=== PATIENT | male | born 1960 | race Two or more races ===

== ENCOUNTER 2018-07-31 09:44 | Outpatient (REF) | payer MEDICAID, SELFPAY ==
[2018-07-31 21:45] LABS: Anion Gap 9.1 mmol/L (3-11); BUN 22 mg/dL (7-18); CO2 26.9 mmol/L (21.0-32.0); CREATININE 1.02 mg/dL (0.70-1.30); Calcium 9.1 mg/dL (8.5-10.1); Chloride 99 mmol/L (98-107); Glucose 185 mg/dL (70-100); Potassium 4.2 mmol/L (3.5-5.1); Sodium 135 mmol/L (136-145)
== END 2018-07-31 10:04 ==
LOC: NCHCN 09:44
PROVIDERS: PCP Nurse Practitioner Family; Visit Provider Registered Nurse
DX: I10 Essential (primary) hypertension (principal)
CPT/HCPCS: 80048

== ENCOUNTER 2018-08-19 07:59 | Outpatient (REF) | payer MEDICAID, SELFPAY ==
[2018-08-19 20:48] LABS: Anion Gap 10.2 mmol/L (3-11); BUN 20 mg/dL (7-18); CO2 26.8 mmol/L (21.0-32.0); CREATININE 1.19 mg/dL (0.70-1.30); Calcium 9.1 mg/dL (8.5-10.1); Chloride 98 mmol/L (98-107); Glucose 233 mg/dL (70-100); Potassium 3.9 mmol/L (3.5-5.1); Sodium 135 mmol/L (136-145)
== END 2018-08-19 08:19 ==
LOC: NCHCN 07:59
PROVIDERS: PCP Nurse Practitioner Family; Visit Provider Registered Nurse
DX: I10 Essential (primary) hypertension (principal)
CPT/HCPCS: 80048

== ENCOUNTER 2018-10-15 08:44 | Outpatient (REF) | payer MEDICAID, SELFPAY ==
[2018-10-15 23:04] LABS: COMMENT (LAB VIEW ONLY) 68.45 mg/dL; Microalb ug/mg Crea 3.7 ug/mg Cr
== END 2018-10-15 09:04 ==
LOC: NCHCN 08:44
PROVIDERS: PCP Nurse Practitioner Family; Visit Provider Registered Nurse
DX: E11.9 Type 2 diabetes mellitus without complications (principal)
CPT/HCPCS: 82043; 82570

== ENCOUNTER 2019-01-28 09:43 | Outpatient (REF) | payer MEDICAID, SELFPAY ==
[2019-01-28 22:02] LABS: HCT 43.2 % (40.0-50.0); HGB 14.9 g/dL (13.5-17.5); Mean Corp. HGB Concentration 34.5 g/dL (32.0-36.0); Mean Corpuscular Hemoglobin 34.1 pg (27.0-33.0); Mean Corpuscular Volume 98.9 fL (80-95); Mean Platelet Volume 10.3 fL (8.0-11.0); Platelet Count 231 x1000/uL (130-400); RBC 4.37 m/cumm (4.50-6.00); RBC Distribution Width 12.1 % (11.8-14.1); White Blood Cell Count 7.69 k/cumm (4.4-10.8)
[2019-01-28 22:22] LABS: ALT 45 U/L (16-63); AST 22 U/L (15-37); Alkaline Phosphatase 95 U/L (46-116); Anion Gap 9.7 mmol/L (3-11); BUN 17 mg/dL (7-18); Bilirubin, Total 0.3 mg/dL (0.2-1.0); CO2 25.3 mmol/L (21.0-32.0); CREATININE 1.04 mg/dL (0.70-1.30); Chloride 103 mmol/L (98-107); Glucose 125 mg/dL (70-100); Magnesium 2.1 mg/dL (1.8-2.4); Potassium 4.4 mmol/L (3.5-5.1); Sodium 138 mmol/L (136-145); TSH 0.95 uIU/mL (0.36-3.74)
[2019-01-30 12:05] LABS: Hepatitis C Ab w Rflx HCV PCR Negative (NEGAT)
== END 2019-01-28 10:03 ==
LOC: NCHCN 09:43
PROVIDERS: PCP Nurse Practitioner Family; Visit Provider Registered Nurse
DX: I10 Essential (primary) hypertension (principal); I49.9 Cardiac arrhythmia, unspecified; Z13.818 Encounter for screening for other digestive system disorders; Z11.59 Encounter for screening for other viral diseases
CPT/HCPCS: 80053; 85027; 86803; 83735; 84443

== ENCOUNTER 2019-02-17 22:06 | Outpatient (REF) | payer MEDICAID, SELFPAY ==
[2019-02-17 22:51] LABS: Folate 17.8 ng/mL (8.6-20.0); Vitamin B12 650 pg/mL (193-986)
== END 2019-02-17 22:26 ==
LOC: NCHCN 22:06
PROVIDERS: PCP Nurse Practitioner Family; Visit Provider Registered Nurse
DX: D58.9 Hereditary hemolytic anemia, unspecified (principal)
CPT/HCPCS: 82607; 82746

== ENCOUNTER 2019-07-14 12:12 | Outpatient (REF) | payer MEDICAID, SELFPAY ==
[2019-07-14 22:09] LABS: Hemoglobin A1C 9.2 % (3.8-5.6)
== END 2019-07-14 12:32 ==
LOC: NCHCN 12:12
PROVIDERS: PCP Nurse Practitioner Family; Visit Provider Registered Nurse
DX: E11.9 Type 2 diabetes mellitus without complications (principal)
CPT/HCPCS: 83036

== ENCOUNTER 2019-10-30 23:26 | Outpatient (REF) | payer MEDICAID, SELFPAY ==
[2019-10-30 22:11] LABS: Microalb ug/mg Crea 7.2 ug/mg Cr
== END 2019-10-30 23:46 ==
LOC: NCHCN 23:26
PROVIDERS: PCP Nurse Practitioner Family; Visit Provider Registered Nurse
DX: E11.9 Type 2 diabetes mellitus without complications (principal)
CPT/HCPCS: 82043; 82570

== ENCOUNTER 2020-01-28 10:05 | Outpatient (REF) | payer MEDICAID, SELFPAY ==
[2020-01-28 22:15] LABS: Anion Gap 10.8 mmol/L (3-11); BUN 17 mg/dL (7-18); CO2 25.2 mmol/L (21.0-32.0); CREATININE 1.12 mg/dL (0.70-1.30); Calcium 9.3 mg/dL (8.5-10.1); Chloride 99 mmol/L (98-107); Glucose 141 mg/dL (74-106); Potassium 4.2 mmol/L (3.5-5.1); Sodium 135 mmol/L (136-145)
== END 2020-01-28 10:25 ==
LOC: NCHCN 10:05
PROVIDERS: PCP Nurse Practitioner Family; Visit Provider Registered Nurse
DX: E11.9 Type 2 diabetes mellitus without complications (principal)
CPT/HCPCS: 80048

== ENCOUNTER 2020-10-27 16:41 | Outpatient (REF) | payer MEDICAID, SELFPAY ==
[2020-10-27 17:48] LABS: COMMENT (LAB VIEW ONLY) 47.59 mg/dL; Microalb ug/mg Crea 13.4 ug/mg Cr
== END 2020-10-27 16:42 | disposition home or self-care (01) ==
LOC: NCHCN 16:41
PROVIDERS: PCP Nurse Practitioner Family; Visit Provider Registered Nurse
DX: E11.9 Type 2 diabetes mellitus without complications (principal)
CPT/HCPCS: 82043; 82570

== ENCOUNTER 2021-01-26 12:34 | Outpatient (REF) | payer MEDICAID, SELFPAY ==
[2021-01-26 14:31] LABS: HCT 40.8 % (40.0-50.0); HGB 14.1 g/dL (13.5-17.5); MCH 32.2 pg (27.0-33.0); MCHC 34.6 % (32.0-36.0); MCV 93.2 fL (80-95); MPV 10.7 fL (8.0-11.0); Platelet Count 223 10^3/uL (130-400); RBC 4.38 10^6/uL (4.36-5.78); RDW 12.4 % (11.8-14.1); RDW-SD 42.8 fL; WBC 6.56 10^3/uL (4.4-10.8)
[2021-01-26 14:51] LABS: ALT 74 U/L (16-63); AST 30 U/L (15-37); Albumin 4.3 g/dL (3.4-5.0); Alkaline Phosphatase 82 U/L (46-116); BUN 13 mg/dL (7-18); Bilirubin, Total 0.4 mg/dL (0.2-1.0); CREATININE 1.2 mg/dL (0.70-1.30); Calcium 9.2 mg/dL (8.5-10.1); Calculated LDL 123 mg/dL (<100); Chloride 102 mmol/L (98-107); Cholesterol 192 mg/dL (<200); Glucose 212 mg/dL (74-106); HDL Cholesterol 43 mg/dL (40-60); Potassium 4.3 mmol/L (3.5-5.1); Sodium 137 mmol/L (136-145); Total Protein 7.2 g/dL (6.4-8.2); Triglyceride 130 mg/dL (<150)
[2021-01-26 15:01] LABS: Hemoglobin A1C 8.9 % (<5.7)
== END 2021-01-26 12:35 | disposition home or self-care (01) ==
LOC: NCHCN 12:34
PROVIDERS: PCP Nurse Practitioner Family; Visit Provider Registered Nurse
DX: E11.9 Type 2 diabetes mellitus without complications (principal); Z00.00 Encounter for general adult medical examination without abnormal findings; D75.89 Other specified diseases of blood and blood-forming organs
CPT/HCPCS: 80053; 80061; 85027; 83036

== ENCOUNTER 2021-10-20 09:44 | Outpatient (REF) | payer MEDICAID, SELFPAY ==
[2021-10-20 16:09] LABS: COMMENT (LAB VIEW ONLY) 23.62 mg/dL; Microalb ug/mg Crea 14.8 ug/mg Cr
== END 2021-10-20 09:45 | disposition home or self-care (01) ==
LOC: NCHCN 09:44
PROVIDERS: PCP Nurse Practitioner Family; Visit Provider Registered Nurse
DX: E11.9 Type 2 diabetes mellitus without complications (principal)
CPT/HCPCS: 82043; 82570

== ENCOUNTER 2022-01-24 16:10 | Outpatient (REF) | payer MEDICAID, SELFPAY ==
[2022-01-24 14:54] LABS: ALT 44 U/L (16-63); AST 26 U/L (15-37); Albumin 3.8 g/dL (3.4-5.0); Alkaline Phosphatase 93 U/L (46-116); Anion Gap 8.8 mmol/L (3-11); BUN 22 mg/dL (7-18); Bilirubin, Total 0.5 mg/dL (0.2-1.0); CO2 27.2 mmol/L (21.0-32.0); CREATININE 1.3 mg/dL (0.70-1.30); Calcium 9.5 mg/dL (8.5-10.1); Chloride 99 mmol/L (98-107); Estimated GFR 61.73 (mL/min/1.73m2); Glucose 181 mg/dL (74-106); Potassium 4.4 mmol/L (3.5-5.1); Sodium 135 mmol/L (136-145); Total Protein 7.7 g/dL (6.4-8.2)
== END 2022-01-24 16:11 | disposition home or self-care (01) ==
LOC: NCHCN 16:10
PROVIDERS: PCP Nurse Practitioner Family; Visit Provider Registered Nurse
DX: E11.9 Type 2 diabetes mellitus without complications (principal); I10 Essential (primary) hypertension
CPT/HCPCS: 80053

== ENCOUNTER 2022-08-23 15:50 | Outpatient (REF) | payer MEDICAID, SELFPAY ==
[2022-08-23 22:20] LABS: COMMENT (LAB VIEW ONLY) 138.34 mg/dL; Microalb ug/mg Crea 10.3 ug/mg Cr
== END 2022-08-23 15:51 | disposition home or self-care (01) ==
LOC: NCHCN 15:50
PROVIDERS: PCP Nurse Practitioner Family; Visit Provider Registered Nurse
DX: E11.9 Type 2 diabetes mellitus without complications (principal)
CPT/HCPCS: 82043; 82570

== ENCOUNTER 2022-12-01 15:10 | Outpatient (REF) | payer MEDICAID, SELFPAY ==
[2022-12-01 14:56] LABS: ALT 35 U/L (16-63); AST 22 U/L (15-37); Albumin 3.8 g/dL (3.4-5.0); Alkaline Phosphatase 101 U/L (46-116); Anion Gap 12.9 mmol/L (3-11); BUN 20 mg/dL (7-18); Bilirubin, Total 0.5 mg/dL (0.2-1.0); CO2 25.1 mmol/L (21.0-32.0); Calcium 8.6 mg/dL (8.5-10.1); Calculated LDL 93 mg/dL (<100); Chloride 103 mmol/L (98-107); Cholesterol 175 mg/dL (<200); Estimated GFR 84.57 (mL/min/1.73m2); Glucose 204 mg/dL (74-106); HDL Cholesterol 51 mg/dL (40-60); Potassium 4.2 mmol/L (3.5-5.1); Sodium 141 mmol/L (136-145); Total Protein 6.7 g/dL (6.4-8.2); Triglyceride 156 mg/dL (<150)
[2022-12-01 14:57] LABS: Hemoglobin A1C 7.7 % (<5.7)
[2022-12-04 09:18] LABS: PSA, Screening 0.8 ng/mL (<=4.5)
== END 2022-12-01 15:11 | disposition home or self-care (01) ==
LOC: NCHCN 15:10
PROVIDERS: PCP Nurse Practitioner Family; Visit Provider Registered Nurse
DX: I10 Essential (primary) hypertension (principal); E11.9 Type 2 diabetes mellitus without complications; E66.8 Other obesity; Z87.891 Personal history of nicotine dependence; Z12.5 Encounter for screening for malignant neoplasm of prostate
CPT/HCPCS: 80053; 80061; 84153; 83036

== ENCOUNTER 2023-06-14 10:50 | Outpatient (REF) | payer MEDICAID, SELFPAY | END 2023-06-14 10:51 | disposition home or self-care (01) | LOC: NCHCN 10:50 | PROVIDERS: PCP Nurse Practitioner Family; Visit Provider Nurse Practitioner Family | DX: E11.9 Type 2 diabetes mellitus without complications (principal) | CPT/HCPCS: 83036 ==

== ENCOUNTER 2023-08-21 10:23 | Outpatient (REF) | payer MEDICAID, SELFPAY ==
[2023-08-21 16:12] LABS: COMMENT (LAB VIEW ONLY) 38.46 mg/dL; Microalb ug/mg Crea 10.4 ug/mg Cr
== END 2023-08-21 10:24 | disposition home or self-care (01) ==
LOC: NCHCN 10:23
PROVIDERS: PCP Nurse Practitioner Family; Visit Provider Nurse Practitioner Family
DX: E11.9 Type 2 diabetes mellitus without complications (principal); I10 Essential (primary) hypertension
CPT/HCPCS: 82043; 82570

== ENCOUNTER 2024-02-19 08:50 | Outpatient (REF) | payer MEDICARE, MEDICAID, SELFPAY ==
[2024-02-19 17:15] LABS: ALT 49 U/L (16-63); AST 28 U/L (15-37); Albumin 3.8 g/dL (3.4-5.0); Alkaline Phosphatase 129 U/L (46-116); Anion Gap 13.7 mmol/L (3-11); BUN 28 mg/dL (7-18); Bilirubin, Total 0.53 mg/dL (0.2-1.0); CO2 21.3 mmol/L (21.0-32.0); CREATININE 1.4 mg/dL (0.70-1.30); Calcium 9.1 mg/dL (8.5-10.1); Calculated LDL 104 mg/dL (<100); Chloride 102 mmol/L (98-107); Cholesterol 187 mg/dL (<200); Estimated GFR 55.78 (mL/min/1.73m2); Glucose 291 mg/dL (74-106); HDL Cholesterol 48 mg/dL (40-60); Potassium 4.4 mmol/L (3.5-5.1); Sodium 137 mmol/L (136-145); Total Protein 7.3 g/dL (6.4-8.2); Triglyceride 177 mg/dL (<150)
== END 2024-02-19 08:51 | disposition home or self-care (01) ==
LOC: NCHCN 08:50
PROVIDERS: PCP Nurse Practitioner Family; Visit Provider Nurse Practitioner Family
DX: E11.9 Type 2 diabetes mellitus without complications (principal)
CPT/HCPCS: 80053; 80061

== ENCOUNTER 2024-08-21 09:19 | Outpatient (REF) | payer MEDICARE, MEDICAID, SELFPAY ==
[2024-08-21 15:34] LABS: COMMENT (LAB VIEW ONLY) 43.74 mg/dL; Microalb ug/mg Crea 37.5 ug/mg Cr
== END 2024-08-21 09:20 | disposition home or self-care (01) ==
LOC: NCHCN 09:19
PROVIDERS: PCP Nurse Practitioner Family; Visit Provider Nurse Practitioner Family
DX: E11.9 Type 2 diabetes mellitus without complications (principal)
CPT/HCPCS: 82043; 82570

== ENCOUNTER 2025-02-16 08:30 | Outpatient (REF) | payer MEDICARE, MEDICAID, SELFPAY ==
[2025-02-16 15:15] LABS: HCT 44.2 % (40.0-50.0); HGB 15.5 g/dL (13.5-17.5); MCH 32.6 pg (27.0-33.0); MCHC 35.1 % (32.0-36.0); MCV 93 fL (80-95); MPV 10.3 fL (8.0-11.0); Platelet Count 210 10^3/uL (130-400); RBC 4.75 10^6/uL (4.36-5.78); RDW 12.4 % (11.8-14.1); RDW-SD 42.7 fL; WBC 6.32 10^3/uL (4.4-10.8)
[2025-02-16 15:29] LABS: ALT 38 U/L (16-63); AST 19 U/L (15-37); Albumin 3.7 g/dL (3.4-5.0); Alkaline Phosphatase 102 U/L (46-116); Anion Gap 11.2 mmol/L (3-11); BUN 20 mg/dL (7-18); Bilirubin, Total 0.5 mg/dL (0.2-1.0); CO2 22.8 mmol/L (21.0-32.0); Calcium 8.6 mg/dL (8.5-10.1); Chloride 101 mmol/L (98-107); Estimated GFR 66.70 (mL/min/1.73m2); Glucose 277 mg/dL (74-106); Potassium 4.2 mmol/L (3.5-5.1); Sodium 135 mmol/L (136-145); Total Protein 7.1 g/dL (6.4-8.2)
[2025-02-16 15:43] LABS: Hemoglobin A1C 7.2 % (<5.7)
[2025-02-17 23:33] LABS: PSA, Screening 1.0 ng/mL (<=4.5)
== END 2025-02-16 08:31 | disposition home or self-care (01) ==
LOC: NCHCN 08:30
PROVIDERS: PCP Nurse Practitioner Family; Visit Provider Nurse Practitioner Family
DX: K76.0 Fatty (change of) liver, not elsewhere classified (principal); Z12.5 Encounter for screening for malignant neoplasm of prostate; E11.9 Type 2 diabetes mellitus without complications; I10 Essential (primary) hypertension
CPT/HCPCS: 80053; 84153; 85027; 83036